=== PATIENT | female | born 1935 | race Hispanic/Latino ===

== ENCOUNTER 2018-02-18 10:41 | Day surgery (SDC) | payer MEDICARE ==
[2018-02-15 14:05] VITALS: BMI 27.4
[2018-02-18 11:33] LABS: BASO # 0.03 K/mm3 (0.0-2.0); BASO % 0.3 % (0.0-3.0); EOS # 0.2 (0.0-0.7); EOS % 2.2 % (1.5-5.0); GRAN # 6.63 (1.4-6.5); HEMOGLOBIN 11.8 g/dL (12.0-16.0); LYMPH # 2.8 (1.2-3.4); LYMPH % 27.1 % (22.0-35.0); MEAN CELL VOLUME 65.1 fl (80.0-105.0); MEAN CORPUSCULAR HEMOGLOBIN 20.6 pg (25.0-35.0); MEAN CORPUSCULAR HGB CONC 31.6 g/dl (31.0-37.0); MEAN PLATELET VOLUME 9.7 fl (7.0-11.0); MONO # 0.7 (0.1-0.6); MONO % 6.4 % (1.0-6.0); RBC 5.73 10^6/uL (3.5-6.1); RED CELL DISTRIBUTION WIDTH 16.3 % (11.5-14.5); WHITE BLOOD COUNT 10.4 10^3/ul (4.5-11.0)
[2018-02-18 11:40] LABS: BLOOD UREA NITROGEN 16 mg/dL (7-21); CALCIUM 9.3 mg/dL (8.4-10.5); GFR NON-AFRICAN AMERICAN 60
[2018-02-18 11:43] LABS: INR 1.06; PARTIAL THROMBOPLASTIN TIME 30.9 Seconds (25.1-36.5); PROTHROMBIN TIME 12.2 SECONDS (9.4-12.5)
[2018-02-18] MEDS ORDERED: Nitroglycerin 50mg in D5W 50 MG/250 ML BOTTLE IV ONE (12:31)
[2018-02-18] MEDS ORDERED: Iodixanol 320 mg/ml 150 ml Bottle IV ONE (12:31)
[2018-02-18] MEDS ORDERED: Iodixanol 320 MG/ML 200 ML BOTTLE IV ONE (12:31)
[2018-02-18] MEDS ORDERED: Lidocaine PF 2% (5 ml) Inj (For Cardiac Arrhy) ONE (12:31)
[2018-02-18] MEDS ORDERED: Midazolam 2 MG/2 ML VIAL ONE (13:40)
[2018-02-18] MEDS ORDERED: Oxycodone/Acetaminophen 5/325 mg Tab PO PRN (14:20)
[2018-02-18] MEDS ORDERED: Sodium Chloride 0.45% 1,000 ML IV SCH (14:30)
[2018-02-18 15:16] VITALS: RESP 18; TEMP 97.6
[2018-02-18 15:58] VITALS: O2SAT 93
[2018-02-18 17:11] VITALS: BP 169/67; PULSE 60
--- NOTE | 2018-02-18 18:23 | VASCULAR ---
PROCEDURE: 1. Abdominal aortogram and bilateral lower extremity runoff. HISTORY: Severe peripheral vascular disease with left lower extremity claudication, lifestyle limiting PHYSICIAN(S): Milad Ron M.D. TECHNIQUE: The relative risks and indications of the procedure were explained to the patient and consent obtained. The patient was hydrated prior to the procedure and the appropriate labs drawn. The patient was placed supine on the arteriogram table and the right groin prepped and draped in the usual sterile fashion. Conscious sedation and monitoring were provided throughout the procedure by a nurse. Via a right common femoral artery approach, a 5 [place] sheath was placed in the right groin. Through the sheath and over a guidewire, a 5 [place] flush catheter was placed in the abdominal aorta at the level of the renal arteries and a PA DSA abdominal aortogram performed. The catheter was pulled down to the aortic bifurcation and bilateral oblique DSA pelvic arteriograms performed. Overlapping bilateral lower extremity DSA arteriograms were obtained from the inguinal ligaments to the ankles. A 0.035 angled Glidewire was advanced over the bifurcation and placed in the mid left SFA. A 7 [place] 65 cm destination sheath was placed in the mid to distal left SFA. Heparin 5000 units IV and nitroglycerin in 250 mcg aliquots were given. The critical stenosis in the left popliteal artery was crossed easily with a 0.035 glidewire and 5 [place] catheter.. Exchange was made for a 0.014 support guidewire. [place] atherectomy of the focal left popliteal stenosis was performed with and LS catheter. Eight passes were performed. There was a mild residual stenosis. The left popliteal artery above the knee was dilated with a 6 mm drug-eluting balloon. An excellent angiographic result was obtained. No stent was required. Completion arteriograms were obtained. The sheath was removed hemostasis obtained with a Perclose device. FINDINGS: There are single renal arteries bilaterally which are widely patent and normal in appearance. The nephrograms are symmetric in appearance. The infrarenal abdominal aorta is widely patent without a radiographically significant stenosis. The aortic bifurcation is widely patent. The common and external iliac arteries are normal in appearance without a significant stenosis. The internal iliac arteries are patent bilaterally. Right lower extremity: The right common femoral artery is patent. The right profunda femoral artery is patent. The right superficial femoral artery is patent and continuous without a radiographically significant stenosis. The right popliteal artery and trifurcation are patent. The 3 right tibial vessels are patent and continuous to the foot. Left lower extremity: Left common femoral artery is patent. The left profunda femoral artery is patent. The left superficial femoral artery is patent and continuous without a radiographically significant stenosis. There is a critical E centric stenosis of the left popliteal artery at the level of the patella. The left trifurcation is intact. There is 3 vessel tibial runoff proximally with an atretic distal left posterior tibial artery. The left anterior tibial and peroneal arteries are patent to the ankle IMPRESSION: 1.Successful [place] atherectomy and drug-eluting balloon angioplasty of a focal stenosis in the left popliteal artery as described above
== END 2018-02-18 17:45 | disposition home or self-care (01) ==
LOC: SDSVAS 10:41
PROVIDERS: ATTEND Radiology Vascular & Interventional Radiology
DX: E11.51 Type 2 diabetes mellitus with diabetic peripheral angiopathy without gangrene (principal); I10 Essential (primary) hypertension; E78.00 Pure hypercholesterolemia, unspecified; Z77.22 Contact with and (suspected) exposure to environmental tobacco smoke (acute) (chronic)
CPT/HCPCS: 36415; 37225; 75625; 75716; 80048; 85025; 85610; 85730; 99152; C1714; C1725 ×2; C1760 ×2; C1769 ×4; C1887 ×2; C1894; J1644 ×2; J2250; J2405; J3010; J7030; Q9966; Q9967

== ENCOUNTER 2018-08-24 07:36 | Outpatient (CLI) | payer MEDICARE | END 2018-08-24 07:37 | disposition home or self-care (01) | LOC: LAB 07:36 ==